=== PATIENT | male | born 1985 | race African-American/Black ===

== ENCOUNTER 2017-03-01 22:26 | Emergency (ER) | payer OTHER ==
[~2017-03-01] VITALS: Ht 185.4 cm; Wt 81.6 kg
[~2017-03-01 22:26] MED LIST: MOTRIN 600 MG600 MG PO
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
[2017-03-02] MEDS ORDERED: IBUPROFEN800 M1 PO (02:30)
[2017-03-02 02:47] VITALS: BP 154/96
== END 2017-03-02 02:55 ==
LOC: ERH 22:26
DX: M25.561 Pain in right knee (principal); M25.562 Pain in left knee; M54.2 Cervicalgia; M25.559 Pain in unspecified hip; V49.50XA Passenger injured in collision with unspecified motor vehicles in traffic accident, initial encounter; Y92.9 Unspecified place or not applicable
CPT/HCPCS: 72050; 73523; 73562-LT; 73562-RT

== ENCOUNTER 2018-04-09 23:00 | Emergency (ER) | payer OTHER ==
[~2018-04-09] VITALS: Ht 186.7 cm; Wt 85.3 kg
[~2018-04-09 23:00] MED LIST changes: +IBUPROFEN800 M1 PO; +KEFLEX500 M1 PO
[2018-04-10 00:12] VITALS: BP 152/98
[2018-04-10] MEDS ORDERED: IBUPROFEN600 M1 PO (00:57)
[2018-04-10] MEDS ORDERED: PERCOCET 5-3251 EACH PO (00:57)
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
== END 2018-04-10 01:16 ==
LOC: ERH 23:00
DX: S61.202A Unspecified open wound of right middle finger without damage to nail, initial encounter (principal); Y28.9XXA Contact with unspecified sharp object, undetermined intent, initial encounter; Y93.G1 Activity, food preparation and clean up